=== PATIENT | male | born 2000 | race Caucasian/White ===

== ENCOUNTER 2019-02-03 12:35 | Emergency (ER) | payer BC, OTHER ==
[~2019-02-03] VITALS: Ht 188 cm; Wt 113.6 kg
--- NOTE | 2019-02-03 13:52 | REP ---
Right knee series: Four views. No sunrise view included. History: Trauma. Comparison radiographs are from February 12, 2018. Findings: There is a recurrent lateral dislocation of the patella. No patellar fracture is seen. A fabella is noted posterolaterally. Impression: Recurrent lateral patellar dislocation. No fracture seen. Electronically Signed by Erik Larry MD 02/03/2019 01:59 P
--- NOTE | 2019-02-03 14:31 | REP ---
RIGHT KNEE SERIES: Three views. HISTORY: Injury in a fall. [place] view. Comparison is made with earlier radiographs. FINDINGS: AP lateral and sunrise views demonstrate improved positioning of the patella compared to the distal femur. There is fullness in the suprapatellar bursa consistent with a joint effusion. On the frontal view, the patella still appears somewhat laterally positioned although it is normally aligned on the sunrise view. There is lateral patellar spurring. No patellar fracture is appreciated. IMPRESSION: Evidence of joint effusion. Lateral patellar spurring. Patellar alignment is normal on the sunrise view and improved on the frontal and lateral views. No acute fracture is evident. Electronically Signed by Erik Larry MD 02/03/2019 02:43 P
[2019-02-03] MEDS ORDERED: ACETAMINOPHEN TAB 650MG DOSE (2X325MG) PO ONE (15:15)
[2019-02-03] MEDS ORDERED: IBUPROFEN 600 MG TAB PO ONE (15:15)
[2019-02-03 15:30] VITALS: BP 123/58
== END 2019-02-03 16:15 | disposition home or self-care (01) ==
LOC: M ED 12:35
DX: S83.004A Unspecified dislocation of right patella, initial encounter (principal); W19.XXXA Unspecified fall, initial encounter; Y92.099 Unspecified place in other non-institutional residence as the place of occurrence of the external cause; Y93.9 Activity, unspecified; Y99.9 Unspecified external cause status; M25.761 Osteophyte, right knee; Z98.84 Bariatric surgery status

== ENCOUNTER → 2019-04-16 | Outpatient (CLI) | payer OTHER ==
[2019-04-16 16:29] LABS: AMYLASE 52 U/L (25-115); LIPASE 61 U/L (73-393)
[2019-04-18 14:55] LABS: EBV AB TO NUCLEAR ANTIGEN <18.0 U/mL (0.0-17.9); EBV VIRAL CAPSID AG IgG 69.6 U/mL (0.0-17.9); EBV VIRAL CAPSID AG IgM 52.9 U/mL (0.0-35.9)
== END ==
LOC: M WUC 11:20
PROVIDERS: ATTEND Physician Assistant
DX: R16.2 Hepatomegaly with splenomegaly, not elsewhere classified (principal)

== ENCOUNTER 2019-07-15 10:02 | Inpatient (IN) | payer OTHER ==
[~2019-07-15] VITALS: Ht 185.4 cm; Wt 121.5 kg
[2019-07-15] MEDS ORDERED: ISOVUE-370 76% 100ML VIAL (Q9967) As Ordered ONE (10:30)
[2019-07-15 10:51] LABS: BASO % 0.6 % (0.0-1.0); EOS # 0.1 10^3/uL (0.0-0.5); EOS % 1.6 % (0.0-3.0); HEMATOCRIT 48.5 % (42.0-52.0); HEMOGLOBIN 16.5 g/dl (13.5-17.5); LYMPH # 1.3 10^3/uL (1.5-5.0); LYMPH % 25.9 % (24.0-44.0); MEAN CORPUSCULAR HEMOGLOBIN 31.3 pg (27.0-33.0); MONO # 0.6 10^3/uL (0.0-0.8); MONO % 11.1 % (0.0-5.0); NEUTROPHILS # 3.1 10^3/uL (1.5-8.5); NEUTROPHILS % 60.6 % (36.0-66.0); PLATELET COUNT, AUTOMATED 217 10^3/uL (150-450); RED BLOOD COUNT 5.27 10^6/uL (4.30-6.10); WHITE BLOOD COUNT 5.1 10^3/uL (4.0-10.0)
--- NOTE | 2019-07-15 11:15 | REP ---
CT ABDOMEN AND PELVIS WITH IV BUT WITHOUT ORAL CONTRAST: HISTORY: Upper abdominal pain. History of gastric bypass. COMPARISON STUDY: April 15, 2019 CT CONTRAST DOSE: 100 mL of intravenous Isovue 370. CT FINDINGS: Digital preliminary integration consultant radiograph shows a normal bowel gas pattern. The liver and spleen silhouettes are prominent on integration consultant image. The lung bases are clear on axial CT images. The patient is status post gastric bypass procedure. The liver and spleen are enlarged on CT images. The craniocaudal vertical span of the liver is 19.7 cm, and the spleen measures 17 cm in greatest diameter. Both these measurements are increased. No focal hepatic or splenic lesion is seen. Liver and spleen size are unchanged from April 15, 2019. There is an edema pattern within the pancreas and in the peripancreatic soft tissues diffusely consistent with acute pancreatitis. This should be correlated clinically. There is mild gallbladder wall thickening. There is no evidence of diffuse ascites. No free air is seen. No abdominal wall defect is observed. The kidneys enhance symmetrically and are morphologically intact. No adrenal lesion is seen. No pancreatic mass or localized fluid collection is seen. Normal appendix is visible in the right lower quadrant. Bone window settings show no significant bony abnormality. IMPRESSION: Findings consistent with pancreatitis with intrapancreatic and peripancreatic edema. Gallbladder wall thickening. These findings are new. There is hepatosplenomegaly, unchanged from the April 15, 2019. No other acute abnormality. Electronically Signed by Erik Larry MD 07/15/2019 01:03 P
[2019-07-15 11:17] LABS: ALBUMIN 4.3 GM/DL (3.2-5.2); BILIRUBIN,DIRECT 1.4 MG/DL (0.0-0.2); BILIRUBIN,TOTAL 3.1 MG/DL (0.2-1.0); TOTAL PROTEIN 7.4 GM/DL (6.4-8.2)
[2019-07-15 11:31] LABS: BLOOD UREA NITROGEN 8 MG/DL (7-18); CALCIUM LEVEL 9.4 MG/DL (8.5-10.1); CARBON DIOXIDE LEVEL 25 MEQ/L (21-32); CHLORIDE LEVEL 107 MEQ/L (98-107); CREATININE FOR GFR 0.82 MG/DL (0.70-1.30); GLUCOSE, FASTING 86 MG/DL (70-100); POTASSIUM SERUM 4.3 MEQ/L (3.5-5.1); SODIUM LEVEL 140 MEQ/L (136-145)
[2019-07-15] MEDS ORDERED: LR 1,000 ML IV SCH (12:15)
[2019-07-15] MEDS ORDERED: MORPHINE 4 MG/ML 1ML VIAL/SYRINGE (J2270) IV PRN (12:45)
[2019-07-15] MEDS ORDERED: ONDANSETRON 4MG/2ML VIAL (J2405) IV PRN (12:45)
[2019-07-15] MEDS: LR 1,000 ML IV SCH ×3 (12:56→20:45)
--- NOTE | 2019-07-15 13:01 | HPEPDOC ---
General Date of Admission 07/15/19 Date of Service: Jul 15, 2019 Chief Complaint The patient is a 19-year-old male admitted with a reason for visit of Abdominal Pain. Source: Patient, Family, RN/MD, Old records Exam Limitations: No limitations Severity: Moderate Associated Symptoms: Nausea History of Present Illness 19 year old male with PMH of Morbid obesity s/p gastric bypass surgery in 2017 with loss of 200 ibs after the procedure presented to the ED with acute onset abdominal pain for 1 day. pateint has been having intermittent upper abdominal and epigastric pain for the last 2 moths would come last for a few hours then go away becoming pain free for several days then again would come. This time the pain started last night severe crampy in the epigastrium radiating to the back associated with dry heaves lasted for 1 to 2 hours then It relaxed a little overnight then again woke up with very severe pain which was causing him to be doubled over in pain. It was 10/10 in intensity but by the time he reached the emergency the pain had gone down spontaneously. In the ED he was found to have acute pancreatitis with elevated bilirubin and transaminitis. CT abdomen and pelvis showed Findings consistent with pancreatitis with intrapancreatic and peripancreatic edema. Gallbladder wall thickening. These findings are new. There is hepatosplenomegaly, unchanged from the April 15, 2019. No other acute abnormality. Home Medications No Active Prescriptions or Reported Meds Allergies Coded Allergies: No Known Allergies (Unverified , 02/03/19) Past Medical History Medical History Morbid obesity s/p gastric bypass surgery in 2017 Family History Significant Family History: Diabetes (mother, maternal grand mother, father now resolved after gastric bypass surgery), Gallbladder (mother gall stones), Heart disease (maternal and paternal grandmother), Hypertension (father, mother), Hyperlipidemia (mother) Social History * Smoker: Denies Alcohol: Denies Drugs: denies A-FIB/CHADSVASC A-FIB History Current/History of A-Fib/PAF?: No Review of Systems Constitutional: Denies: Chills, Fever, Night Sweats Eyes: Denies: Pain, Vision change ENT: Denies: Head Aches, Ear Pain, Dysphagia Skin: Denies: Rash, Lesions, Breakdown Pulmonary: Denies: Dyspnea, Cough Cardiovascular: Denies: Chest Pain, Palpitations, Orthopnea, Paroxysmal Noc. Dyspnea, Lt Headedness Gastrointestinal: Reports: Nausea, Abdominal Pain, Other Symptoms (dry heaves) Genitourinary: Denies: Dysuria, Frequency, Incontinence, Retention Hematologic: Denies: Bruising, Bleeding Excessively Musculoskeletal: Denies: Neck Pain, Back Pain, Joint Pain, Muscle Pain, Spasms Psych: Reports: Mood Normal; Denies: Depression, Memory Issues Physical Examination General Exam: Positive: Alert, Cooperative, No Acute Distress Eye Exam: Positive: PERRLA, Conjunctiva & lids normal, EOMI; Negative: Sclera icteric ENT Exam: Positive: Atraumatic, Mucous membr. moist/pink, Pharynx Normal Neck Exam: Positive: Supple; Negative: JVD, thyromegaly Chest Exam: Positive: Clear to auscultation, Normal air movement Heart Exam: Positive: Rate Normal, Regular Rhythm, Normal S1, Normal S2; Negative: Murmurs, Rubs Abdomen Exam: Positive: BS Hypoactive, Soft, Tenderness (in the epigastrium); Negative: Hepatospenomegaly Extremity Exam: Positive: Normal pulses; Negative: Clubbing, Cyanosis, Edema Skin Exam: Positive: Nl turgor and temperature; Negative: Breakdown, Lesion Psych Exam: Positive: Mental status NL, Mood NL, Memory Intact, Oriented x 3 Vital Signs Vital Signs Date Time Temp Pulse Resp B/P (MAP) Pulse Ox O2 Delivery O2 Flow Rate FiO2 07/15/19 11:01 18 07/15/19 10:02 98.3 55 99 Room Air Laboratory Data Labs 24H Laboratory Tests 2 07/15/19 10:30: Immature Granulocyte % (Auto) 0.2, White Blood Count 5.1, Red Blood Count 5.27, Hemoglobin 16.5, Hematocrit 48.5, Mean Corpuscular Volume 92.0, Mean Corpuscular Hemoglobin 31.3, Mean Corpuscular Hemoglobin Concent 34.0, Red Cell Distribution Width 12.5, Platelet Count 217, Neutrophils (%) (Auto) 60.6, Lymphocytes (%) (Auto) 25.9, Monocytes (%) (Auto) 11.1H, Eosinophils (%) (Auto) 1.6, Basophils (%) (Auto) 0.6, Neutrophils # (Auto) 3.1, Lymphocytes # (Auto) 1.3L, Monocytes # (Auto) 0.6, Eosinophils # (Auto) 0.1, Basophils # (Auto) 0.0, Nucleated Red Blood Cells % (auto) 0.0, Aspartate Amino Transf (AST/SGOT) 384H, Alanine Aminotransferase (ALT/SGPT) 236H, Alkaline Phosphatase 77, Total Bilirubin 3.1H, Direct Bilirubin 1.4H, Total Protein 7.4, Albumin 4.3, Albumin/Globulin Ratio 1.39, Lipase [id number] 07/15/19 10:40: Urine Color YELLOW, Urine Appearance CLEAR, Urine pH 6.0, Urine Specific [place] 1.006, Urine Protein NEGATIVE, Urine Glucose (UA) NEGATIVE, Urine Ketones NEGATIVE, Urine Blood 1+H, Urine Nitrite NEGATIVE, Urine Bilirubin NEGATIVE, Urine Urobilinogen 4.0H, Urine Leukocyte Esterase NEGATIVE, Urine WBC (Auto) 0, Urine RBC (Auto) 1, Urine Hyaline Casts (Auto) 0, Urine Bacteria (Auto) NEGATIVE, Urine Squamous Epithelial Cells 0, Urine Sperm (Auto) 07/15/19 10:50: Anion Gap 8, Blood Urea Nitrogen 8, Creatinine 0.82, Sodium Level 140, Potassium Level 4.3, Chloride Level 107, Carbon Dioxide Level 25, Calcium Level 9.4 CBC/BMP Laboratory Tests 07/15/19 10:30 Red Blood Count 5.27, Mean Corpuscular Volume 92.0, Mean Corpuscular Hemoglobin 31.3, Mean Corpuscular Hemoglobin Concent 34.0, Red Cell Distribution Width 12.5, Neutrophils (%) (Auto) 60.6, Lymphocytes (%) (Auto) 25.9, Monocytes (%) (Auto) 11.1 H, Eosinophils (%) (Auto) 1.6, Basophils (%) (Auto) 0.6, Neutrophils # (Auto) 3.1, Lymphocytes # (Auto) 1.3 L, Monocytes # (Auto) 0.6, Eosinophils # (Auto) 0.1, Basophils # (Auto) 0.0 07/15/19 10:50 Calcium Level 9.4 Assessment/Plan 19 year old male with PMH of Morbid obesity s/p gastric bypass surgery in 2017 with loss of 200 ibs after the procedure presented to the ED with acute onset abdominal pain for 1 day. pateint has been having intermittent upper abdominal and epigastric pain for the last 2 moths would come last for a few hours then go away becoming pain free for several days then again would come. This time the pain started last night severe crampy in the epigastrium radiating to the back associated with dry heaves lasted for 1 to 2 hours then It relaxed a little overnight then again woke up with very severe pain which was causing him to be doubled over in pain. It was 10/10 in intensity but by the time he reached the emergency the pain had gone down spontaneously. In the ED he was found to have acute pancreatitis with elevated bilirubin and transaminitis. CT abdomen and pelvis showed Findings consistent with pancreatitis with intrapancreatic and peripancreatic edema. Gallbladder wall thickening. These findings are new. There is hepatosplenomegaly, unchanged from the April 15, 2019. No other acute abnormality. Acute pancreatitis NPO, IVF ringers lactate. pain control with morphine Pantoprazole , zofran MRCP. GI consult. H/O morbid obesity s/p gastric bypass surgery Plan / VTE VTE Prophylaxis Ordered?: Yes MARIFER TAYLOR MD Jul 15, 2019 13:01
[2019-07-15 14:35] VITALS: BP 125/60
[2019-07-15] MEDS ORDERED: PANTOPRAZOLE 40MG INJ (PROTONIX) (C9113) IV SCH (15:00)
--- NOTE | 2019-07-15 18:45 | CR.PDOC ---
General Date of Consultation: Jul 15, 2019 Referring Provider: NILA PAUL MD Attending Physician: AIDEE GOMEZ MD Consultation Primary physician/ hospitalist: Dr. Nila Paul Reason for consult: Acute pancreatitis. HPI: 19-year-old male patient with obesity (s/p Siddhartha-en-Y gastric bypass, 2 years ago, with 100 pound weight loss post surgery, current BMI 35), presented to ER for acute onset abdominal pain and was admitted for pancreatitis. Patient reports having few episodes of epigastric abdominal pain for the past 2 months, with the current episode started yesterday with severe epigastric abdominal pain, radiating to the back, sharp/stabbing nature, associated with nausea and an episode of vomiting. When patient is examined, his pain has significantly improved and denies any active symptoms. Pertinent negative GI symptoms: Patient denies fever, sick contacts, recent travel, diarrhea, loss of appetite, early satiety or unintentional weight loss. No history of hematemesis, melena or hematochezia. Patient reports regular bowel movements. Review of Systems: GI: as stated above CVS: No chest pain, No palpitations, No leg swelling. RS: No Shortness of breath, No Wheezing, no cough RESERVES CLERK: No dizziness, No motor weakness, No sensory problems Hematology: No bruising, No gum bleeding, Musculoskeletal: No joint pain, ambulating well. Skin: No rash : No hematuria, No burning sensation of the urine ENT: No ear discharge/ pain, No dysphagia. Eyes: No photophobia. Jaundice Home medications: reviewed. Antithrombotic agents - none Medical h/o: As above. Surgical h/o: Siddhartha-en-Y gastric bypass. Social h/o: Alcohol - denies, smoking- denies , IVDA/ drugs - denies. Family h/o of GI cancers - None Prior Endoscopies: None in [facility] Prior GI evaluations: None in [facility] Exam: Vitals: reviewed General: Alert and oriented x 3, not in distress HEENT: NO pallor, no icterus. Normal oropharynx, NO cervical lymph nodes. Chest: symmetric with bilateral clear air entry, CVS: S1, S2 heard, normal, no murmurs . Abdomen: non-distended, laparoscopy surgical scars, soft, non-tender, no palpable masses, normal bowel sounds heard. Rectal exam: Patient refused. Extremities: no pedal edema, pulses palpable. RESERVES CLERK: no focal motor or sensory deficits. Moves all extremities Skin: no rash. Labs: reviewed. Imaging: reviewed. Impression: - Acute onset epigastric pain with radiation to back, labs showing elevated lipase, with abnormal liver panel, MRI showing multiple gallstones but normal CBD and clinically symptoms also improved -- likely biliary pancreatitis with passed CBD stone. DDx- Biliary cholic vs less likely PUD. Recommendations: - Patient educated about the test results, possible differential diagnoses and All questions answered. - IV hydration - prefer ringers lactate 3-5 ml /kg/ hour drip for first 12 hours and then titrate based on the clinical course. - Advance diet as tolerated when patient has return of appetite. - Surgery consult for possible inpatient cholecystectomy. - If persistent worsening liver panel, please obtain viral hepatitis markers and autoimmune hepatitis work up ( NORMA, AMA, smooth muscle antibody and liver kidney microsomal antibody.). - if recurrent biliary colicky pain and worsening liver panel, then patient might require IR drainage of CBD or referral to tertiary center for possible biliary drainage. ( due to gastri bypass, unfortunately regular ERCP cannot be performed). Plan of care discussed with patient and primary team. Patient verbalized understanding and agreed with the plan. Laboratory Data CBC/BMP Laboratory Tests 07/15/19 10:30 Red Blood Count 5.27, Mean Corpuscular Volume 92.0, Mean Corpuscular Hemoglobin 31.3, Mean Corpuscular Hemoglobin Concent 34.0, Red Cell Distribution Width 12.5, Neutrophils (%) (Auto) 60.6, Lymphocytes (%) (Auto) 25.9, Monocytes (%) (Auto) 11.1 H, Eosinophils (%) (Auto) 1.6, Basophils (%) (Auto) 0.6, Neutrophils # (Auto) 3.1, Lymphocytes # (Auto) 1.3 L, Monocytes # (Auto) 0.6, Eosinophils # (Auto) 0.1, Basophils # (Auto) 0.0 07/15/19 10:50 Calcium Level 9.4 Allergies Coded Allergies: No Known Allergies (Unverified , 02/03/19) Home Medications No Active Prescriptions or Reported Meds AIDEE GOMEZ MD Jul 15, 2019 18:44
[2019-07-15 20:00] VITALS: BP 162/87
--- NOTE | 2019-07-15 21:11 | REPVR ---
EXAM: MR Abdomen Without Contrast; Liver EXAM DATE/TIME: 07/15/2019 7:50 PM CLINICAL HISTORY: 19 years old, male; Abnormal findings; Abnormal radiologic finding of the abdomen; Radiologic exam and body structure: CT and US gb; Nausea and other: Pain; Additional info: Mrcp TECHNIQUE: Imaging protocol: MR Abdomen without contrast. Exam focused on the liver. 3D rendering: MIP reconstructed images were created and reviewed. COMPARISON: CT ABD/PEL W/IV CONTRAST ONLY 07/15/2019 10:40 AM FINDINGS: Liver: Normal-appearing liver Gallbladder and bile ducts: There is sludge and gravel like gallstones filling the gallbladder, 100s of small gallstones. The common bile duct is normal in size and there is no intrahepatic biliary dilatation. Pancreas: There is fluid along the margins of the pancreas and gallbladder consistent with pancreatitis. There may be cholecystitis as well. Spleen: There is moderate splenomegaly. Kidneys and ureters: Normal appearing kidneys. IMPRESSION: 1. There are 100s of small gallstones within the gallbladder. There is fluid along the course of the pancreas consistent with pancreatitis. 2. Some fluid along the margins of the gallbladder could be the result of cholecystitis. 3. The common bile duct is not enlarged. The pancreatic duct is not enlarged Electronically signed by: Vinayak Marcus On 07/15/2019 21:11:37 PM
[2019-07-16] MEDS: LR 1,000 ML IV SCH ×3 (02:35→08:57)
[2019-07-16 06:00] VITALS: BP 165/81
[2019-07-16 06:34] LABS: BASO % 0.6 % (0.0-1.0); EOS # 0.1 10^3/uL (0.0-0.5); EOS % 2.3 % (0.0-3.0); HEMATOCRIT 41.4 % (42.0-52.0); LYMPH # 1.7 10^3/uL (1.5-5.0); LYMPH % 31.2 % (24.0-44.0); MEAN CORPUSCULAR HEMOGLOBIN 32.1 pg (27.0-33.0); MEAN CORPUSCULAR HGB CONC 34.5 g/dl (32.0-36.5); MONO # 0.4 10^3/uL (0.0-0.8); MONO % 7.4 % (0.0-5.0); NEUTROPHILS # 3.1 10^3/uL (1.5-8.5); NEUTROPHILS % 58.1 % (36.0-66.0); PLATELET COUNT, AUTOMATED 181 10^3/uL (150-450); RED BLOOD COUNT 4.45 10^6/uL (4.30-6.10); WHITE BLOOD COUNT 5.3 10^3/uL (4.0-10.0)
[2019-07-16 06:37] LABS: HEMOGLOBIN 14.3 g/dl (13.5-17.5)
[2019-07-16 06:51] LABS: BLOOD UREA NITROGEN 8 MG/DL (7-18); CARBON DIOXIDE LEVEL 29 MEQ/L (21-32); CHLORIDE LEVEL 105 MEQ/L (98-107); CREATININE FOR GFR 0.74 MG/DL (0.70-1.30); GLUCOSE, FASTING 77 MG/DL (70-100); LIPASE 948 U/L (73-393); POTASSIUM SERUM 4.3 MEQ/L (3.5-5.1); SODIUM LEVEL 139 MEQ/L (136-145)
[2019-07-16 07:35] LABS: ALBUMIN 3.6 GM/DL (3.2-5.2); ALT/SGPT 175 U/L (12-78); BILIRUBIN,DIRECT 0.3 MG/DL (0.0-0.2); BILIRUBIN,TOTAL 2.2 MG/DL (0.2-1.0); TOTAL PROTEIN 6.6 GM/DL (6.4-8.2)
--- NOTE | 2019-07-16 09:55 | IPNPDOC ---
Subjective Date Seen The patient was seen on 07/16/19. Subjective Chief Complaint/HPI Denies any abdominal pain this am. No fever or chills, no dry heaves. Infact did not have any further episode of pain after admission. Passing flatus but no bowel movement yet. Says feeling hungry. Objective Physical Examination General Exam: Positive: Alert, Cooperative, No Acute Distress Eye Exam: Positive: PERRLA, Conjunctiva & lids normal, EOMI; Negative: Sclera icteric ENT Exam: Positive: Atraumatic, Mucous membr. moist/pink, Pharynx Normal Neck Exam: Positive: Supple; Negative: JVD, thyromegaly Chest Exam: Positive: Clear to auscultation, Normal air movement Heart Exam: Positive: Rate Normal, Regular Rhythm, Normal S1, Normal S2; Negative: Murmurs, Rubs Abdomen Exam: Positive: Normal bowel sounds, Soft; Negative: Tenderness Extremity Exam: Positive: Normal pulses; Negative: Clubbing, Cyanosis, Edema Skin Exam: Positive: Nl turgor and temperature; Negative: Breakdown, Lesion Psych Exam: Positive: Mental status NL, Mood NL, Memory Intact, Oriented x 3 Assessment /Plan Assessment 19 year old male with PMH of Morbid obesity s/p gastric bypass surgery in 2017 with loss of 200 ibs after the procedure presented to the ED with acute onset abdominal pain for 1 day. pateint has been having intermittent upper abdominal and epigastric pain for the last 2 moths would come last for a few hours then go away becoming pain free for several days then again would come. This time the pain started last night severe crampy in the epigastrium radiating to the back associated with dry heaves lasted for 1 to 2 hours then It relaxed a little overnight then again woke up with very severe pain which was causing him to be doubled over in pain. It was 10/10 in intensity but by the time he reached the emergency the pain had gone down spontaneously. In the ED he was found to have acute pancreatitis with elevated bilirubin and transaminitis. CT abdomen and pelvis showed Findings consistent with pancreatitis with intrapancreatic and peripancreatic edema. Gallbladder wall thickening. These findings are new. There is hepatosplenomegaly, unchanged from the April 15, 2019. No other acute abnormality. Acute Gall stone pancreatitis seems to be improving advance diet to full liquids. IVF reduce rate pain control with morphine prn Pantoprazole , zofran MRCP shows innumerable small gall stones with sludge with possible cholecystitis, No CBD dilatation or stones in CBD. No intrahepatic biliary dilatation. features of acute pancreatitis as expected. GI consult appreciated will consult surgery Acute cholecystitis I do not think he has acute cholecystitis as no pain at present, no fever no elevated WBC. Though the MRCP is showing some fluid along the gall bladder wall. Abdominal exam completely benign. will not give any antibiotics at present. Surgical evaluation. H/O morbid obesity s/p gastric bypass surgery Plan/VTE VTE Prophylaxis Ordered?: Yes VS, I&O, 24H, Fishbone Vital Signs/I&O Vital Signs Date Time Temp Pulse Resp B/P (MAP) Pulse Ox O2 Delivery O2 Flow Rate FiO2 07/16/19 06:00 98.2 77 18 165/81 (109) 97 07/15/19 10:02 Room Air I&O- Last 24 Hours up to 6 AM 07/16/19 06:00 Intake Total 4305 ml Output Total 200 ml Balance 4105 ml Laboratory Data 24H LABS Laboratory Tests 2 07/15/19 10:30: Immature Granulocyte % (Auto) 0.2, White Blood Count 5.1, Red Blood Count 5.27, Hemoglobin 16.5, Hematocrit 48.5, Mean Corpuscular Volume 92.0, Mean Corpuscular Hemoglobin 31.3, Mean Corpuscular Hemoglobin Concent 34.0, Red Cell Distribution Width 12.5, Platelet Count 217, Neutrophils (%) (Auto) 60.6, Lymphocytes (%) (Au to) 25.9, Monocytes (%) (Auto) 11.1H, Eosinophils (%) (Auto) 1.6, Basophils (%) (Auto) 0.6, Neutrophils # (Auto) 3.1, Lymphocytes # (Auto) 1.3L, Monocytes # (Auto) 0.6, Eosinophils # (Auto) 0.1, Basophils # (Auto) 0.0, Nucleated Red Blood Cells % (auto) 0.0, Aspartate Amino Transf (AST/SGOT) 384H, Alanine Aminotransferase (ALT/SGPT) 236H, Alkaline Phosphatase 77, Total Bilirubin 3.1H, Direct Bilirubin 1.4H, Total Protein 7.4, Albumin 4.3, Albumin/Globulin Ratio 1.39, Lipase [id number] 07/15/19 10:40: Urine Color YELLOW, Urine Appearance CLEAR, Urine pH 6.0, Urine Specific [place] 1.006, Urine Protein NEGATIVE, Urine Glucose (UA) NEGATIVE, Urine Ketones NEGATIVE, Urine Blood 1+H, Urine Nitrite NEGATIVE, Urine Bilirubin NEGATIVE, Urine Urobilinogen 4.0H, Urine Leukocyte Esterase NEGATIVE, Urine WBC (Auto) 0, Urine RBC (Auto) 1, Urine Hyaline Casts (Auto) 0, Urine Bacteria (Auto) NEGATIVE, Urine Squamous Epithelial Cells 0, Urine Sperm (Auto) 07/15/19 10:50: Anion Gap 8, Blood Urea Nitrogen 8, Creatinine 0.82, Sodium Level 140, Potassium Level 4.3, Chloride Level 107, Carbon Dioxide Level 25, Calcium Level 9.4 07/16/19 06:09: 07/16/19 06:10: Immature Granulocyte % (Auto) 0.4, White Blood Count 5.3, Red Blood Count 4.45, Hemoglobin 14.3#, Hematocrit 41.4L, Mean Corpuscular Volume 93.0, Mean Corpuscular Hemoglobin 32.1, Mean Corpuscular Hemoglobin Concent 34.5, Red Cell Distribution Width 12.6, Platelet Count 181, Neutrophils (%) (Auto) 58.1, Lymphocytes (%) (Auto) 31.2, Monocytes (%) (Auto) 7.4H, Eosinophils (%) (Auto) 2.3, Basophils (%) (Auto) 0.6, Neutrophils # (Auto) 3.1, Lymphocytes # (Auto) 1.7, Monocytes # (Auto) 0.4, Eosinophils # (Auto) 0.1, Basophils # (Auto) 0.0, Nucleated Red Blood Cells % (auto) 0.0 CBC/BMP Laboratory Tests 07/15/19 10:30 Red Blood Count 5.27, Mean Corpuscular Volume 92.0, Mean Corpuscular Hemoglobin 31.3, Mean Corpuscular Hemoglobin Concent 34.0, Red Cell Distribution Width 12.5, Neutrophils (%) (Auto) 60.6, Lymphocytes (%) (Auto) 25.9, Monocytes (%) (Auto) 11.1 H, Eosinophils (%) (Auto) 1.6, Basophils (%) (Auto) 0.6, Neutrophils # (Auto) 3.1, Lymphocytes # (Auto) 1.3 L, Monocytes # (Auto) 0.6, Eosinophils # (Auto) 0.1, Basophils # (Auto) 0.0 07/15/19 10:50 Calcium Level 9.4 07/16/19 06:10 Red Blood Count 4.45, Mean Corpuscular Volume 93.0, Mean Corpuscular Hemoglobin 32.1, Mean Corpuscular Hemoglobin Concent 34.5, Red Cell Distribution Width 12.6, Neutrophils (%) (Auto) 58.1, Lymphocytes (%) (Auto) 31.2, Monocytes (%) (Auto) 7.4 H, Eosinophils (%) (Auto) 2.3, Basophils (%) (Auto) 0.6, Neutrophils # (Auto) 3.1, Lymphocytes # (Auto) 1.7, Monocytes # (Auto) 0.4, Eosinophils # (Auto) 0.1, Basophils # (Auto) 0.0 MARIFER TAYLOR MD Jul 16, 2019 06:53
[2019-07-16 14:00] VITALS: BP 141/80
--- NOTE | 2019-07-16 14:33 | DS.PDOC ---
Discharge Summary General Date of Admission Jul 15, 2019 at 12:40 Date of Discharge 07/16/19 Discharge Summary PROCEDURES PERFORMED DURING STAY: [None]. DISCHARGE DIAGNOSES: Acute gallstone Pancreatitis COMPLICATIONS/CHIEF COMPLAINT: Acute Pancreatitis. HISTORY OF PRESENT ILLNESS: Please see history and physical HOSPITAL COURSE: 19 year old male with PMH of Morbid obesity s/p gastric bypass surgery in 2017 with loss of 200 ibs after the procedure presented to the ED with acute onset abdominal pain for 1 day. pateint has been having intermittent upper abdominal and epigastric pain for the last 2 moths would come last for a few hours then go away becoming pain free for several days then again would come. This time the pain started last night severe crampy in the epigastrium radiating to the back associated with dry heaves lasted for 1 to 2 hours then It relaxed a little overnight then again woke up with very severe pain which was causing him to be doubled over in pain. It was 10/10 in intensity but by the time he reached the emergency the pain had gone down spontaneously. In the ED he was found to have acute pancreatitis with elevated bilirubin and transaminitis. CT abdomen and pelvis showed Findings consistent with pancreatitis with intrapancreatic and peripancreatic edema. Gallbladder wall thickening. These findings are new. There is hepatosplenomegaly, unchanged from the April 15, 2019. No other acute abnormality. Acute Gall stone pancreatitis MRCP shows innumerable small gall stones with sludge with possible cholecystitis, No CBD dilatation or stones in CBD. No intrahepatic biliary dilatation. features of acute pancreatitis as expected. improving. advanced diet to Low fat and low cholesterol. Seen by Surgery planned for cholecystectomy on 07/21/19 GI consult appreciated Acute cholecystitis as per MRCP I do not think he has acute cholecystitis as no pain at present, no fever no elevated WBC. Though the MRCP is showing some fluid along the gall bladder wall. Abdominal exam completely benign. Has been evaluated by surgery. H/O morbid obesity s/p gastric bypass surgery DISCHARGE MEDICATIONS: Please see below. ALLERGIES: Please see below. PHYSICAL EXAMINATION ON DISCHARGE: VITAL SIGNS: Please see below. General Exam: Positive: Alert, Cooperative, No Acute Distress Eye Exam: Positive: PERRLA, Conjunctiva & lids normal, EOMI; Negative: Sclera icteric ENT Exam: Positive: Atraumatic, Mucous membr. moist/pink, Pharynx Normal Neck Exam: Positive: Supple; Negative: JVD, thyromegaly Chest Exam: Positive: Clear to auscultation, Normal air movement Heart Exam: Positive: Rate Normal, Regular Rhythm, Normal S1, Normal S2; Negative: Murmurs, Rubs Abdomen Exam: Positive: Normal bowel sounds, Soft; Negative: Tenderness Extremity Exam: Positive: Normal pulses; Negative: Clubbing, Cyanosis, Edema Skin Exam: Positive: Nl turgor and temperature; Negative: Breakdown, Lesion Psych Exam: Positive: Mental status NL, Mood NL, Memory Intact, Oriented x 3 LABORATORY DATA: Please see below. ACTIVITY: [As tolerated]. DIET: low fat, low cholesterol DISCHARGE PLAN: Home DISPOSITION: Home DISCHARGE INSTRUCTIONS: Follow up Dr Comer. DISCHARGE CONDITION: [Stable]. TIME SPENT ON DISCHARGE: 35 minutes. Vital Signs/I&Os Vital Signs Date Time Temp Pulse Resp B/P (MAP) Pulse Ox O2 Delivery O2 Flow Rate FiO2 07/16/19 06:00 98.2 77 18 165/81 (109) 97 07/15/19 10:02 Room Air I&O- Last 24 Hours up to 6 AM 07/16/19 06:00 Intake Total 4305 ml Output Total 200 ml Balance 4105 ml Laboratory Data Labs 24H Laboratory Tests 2 07/16/19 06:09: Anion Gap 5L, Calcium Level 9.0, Aspartate Amino Transf (AST/SGOT) 133H, Alanine Aminotransferase (ALT/SGPT) 175H, Alkaline Phosphatase 70, Total Bilirubin 2.2H, Direct Bilirubin 0.3H, Total Protein 6.6, Albumin 3.6, Albumin/Globulin Ratio 1.20, Lipase 948H 07/16/19 06:10: Immature Granulocyte % (Auto) 0.4, White Blood Count 5.3, Red Blood Count 4.45, Hemoglobin 14.3#, Hematocrit 41.4L, Mean Corpuscular Volume 93.0, Mean Corpuscular Hemoglobin 32.1, Mean Corpuscular Hemoglobin Concent 34.5, Red Cell Distribution Width 12.6, Platelet Count 181, Neutrophils (%) (Auto) 58.1, Lymphocytes (%) (Auto) 31.2, Monocytes (%) (Auto) 7.4H, Eosinophils (%) (Auto) 2.3, Basophils (%) (Auto) 0.6, Neutrophils # (Auto) 3.1, Lymphocytes # (Auto) 1.7, Monocytes # (Auto) 0.4, Eosinophils # (Auto) 0.1, Basophils # (Auto) 0.0, Nucleated Red Blood Cells % (auto) 0.0 CBC/BMP Laboratory Tests 07/16/19 06:09 07/16/19 06:10 Red Blood Count 4.45, Mean Corpuscular Volume 93.0, Mean Corpuscular Hemoglobin 32.1, Mean Corpuscular Hemoglobin Concent 34.5, Red Cell Distribution Width 12.6, Neutrophils (%) (Auto) 58.1, Lymphocytes (%) (Auto) 31.2, Monocytes (%) (Auto) 7.4 H, Eosinophils (%) (Auto) 2.3, Basophils (%) (Auto) 0.6, Neutrophils # (Auto) 3.1, Lymphocytes # (Auto) 1.7, Monocytes # (Auto) 0.4, Eosinophils # (Auto) 0.1, Basophils # (Auto) 0.0 Discharge Medications No Active Prescriptions or Reported Meds Allergies Coded Allergies: No Known Allergies (Unverified , 02/03/19) MARIFER TAYLOR MD Jul 16, 2019 14:33
--- NOTE | 2019-07-16 14:34 | CR.PDOC ---
General Surgery Consultation Date of Consultation 07/16/19 History and Physical CONSULT REPORT FOR: Dr. Nila Paul (hospitalist service) REASON FOR CONSULTATION: Gallstone pancreatitis, bariatric surgery status HISTORY OF PRESENT ILLNESS: Patient is a 19-year-old male who has a history of laparoscopic gastric bypass done 2 years ago and apparently has lost about 200 pounds from the procedure but weight has to have lysed now. He presented and got admitted to the hospital yesterday with acute onset of severe epigastric pain and discomfort accompanied with nausea and vomiting.Prior to this patient reports intermittent right upper quadrant abdominal discomfort intermittently for the past 2 months. During one of the episodes he was previously seen in the hospital. He was worked up and diagnosed with gallstone pancreatitis. He also had concomitant elevation of his liver function test which seems to be improving on repeat laboratories. He also has had a CT of the abdomen and pelvis and followed by an MRCP to workup for possibility of: Mild duct stones. I was then asked to see the patient for consideration for performing cholecystectomy for his gallstone pancreatitis PAST MEDICAL HISTORY: 1. Morbid obesity status post laparoscopic Siddhartha-en-Y gastric bypass 2 years ago. PAST SURGICAL HISTORY: INCLUDES: 1. Laparoscopic Siddhartha-en-Y gastric bypass. PREVIOUS ANESTHESIA REACTIONS: Denies ALLERGIES: Please see below. FAMILY HISTORY: Noncontributory. HOME MEDICATIONS: Please see below. REVIEW OF SYSTEMS: GENERAL: Patient with weight loss from gastric bypass. Reports weight has to have lysed. Denies fevers or chills. HEENT: [Denies blurred vision and double vision. Denies ear symptoms. Denies hoarseness]. NECK: Denies any neck pain CARDIOVASCULAR: [Denies chest pain and palpitations]. MUSCULOSKELETAL: [Denies arthralgias, back pain and thrombophlebitis]. SKIN: [Denies rash]. NEUROLOGIC: [Denies headache, stroke and transient ischemic attack]. PSYCHIATRIC: [Denies anxiety and depression]. ENDOCRINE: [Denies thyroid disease]. HEMATOLOGY/ONCOLOGY: [Denies bleeding or clotting disorder]. HEART: [Denies any chest pains, palpitations, paroxysmal dyspnea, orthopnea]. PULMONARY: [Denies chronic cough, dyspnea and wheezing]. GASTROINTESTINAL: See HPI. GENITOURINARY: [Denies dysuria, frequency, hematuria and nocturia]. ENDOCRINE: [Denies polydipsia, polyphagia, polyuria, heat or cold intolerance]. INFECTIOUS: [Denies any recent upper respiratory tract infection, UTI, need for use of antibiotics]. NUTRITION: [Reports good appetite]. PHYSICAL EXAMINATION: VITALS SIGNS: Please see below. GENERAL APPEARANCE: Patient sitting up on the bed when I entered the room, looks very comfortable. SKIN: [Warm and moist]. HEENT: [Normocephalic, atraumatic. [place] palpebral conjunctiva, anicteric sclerae. Lips and mucosa appear moist]. NECK: [Supple, no thyromegaly. No obvious jugular venous distention]. LUNGS: [Clear to auscultation bilaterally. No wheezing appreciated]. HEART: [No chest wall abnormalities. Regular rate and rhythm with no murmurs appreciated]. ABDOMEN: Abdomen is nondistended, loose pannus from the weight loss, soft, no gross tenderness on palpation over the epigastric and right upper quadrant area. EXTREMITIES: [Extremities have no deformities. No edema identified] ANCILLARIES: . LABORATORY DATA: Please see below. IMAGING STUDIES: CT abdomen and pelvis Findings consistent with pancreatitis with intrapancreatic and peripancreatic edema. Gallbladder wall thickening. These findings are new. There is hepatosplenomegaly, unchanged from the April 15, 2019. No other acute abnormality. MRCP .1. There are 100s of small gallstones within the gallbladder. There is fluid along the course of the pancreas consistent with pancreatitis. 2. Some fluid along the margins of the gallbladder could be the result of cholecystitis. 3. The common bile duct is not enlarged. The pancreatic duct is not enlarged IMPRESSION AND PLAN: History of morbid obesity status post Siddhartha-en-Y gastric bypass Gallstone pancreatitis I discussed with him how the gastric bypass fax management of his gallstones and the gallstone pancreatitis as well as possibility of having colon bile duct stones. This is of concern especially with his LFTs being elevated on admission. This seems to be improving on repeat. Likewise a lipase has gone down markedly. Clinically he does not have any further abdominal discomfort or tenderness and is so far tolerating full liquids. He does have stones in his gallbladder with some signs of gallbladder wall thickening consistent with some chronic type of cholecystitis. On imaging he has some pancreatic edema consistent with his pancreatitis though no signs of necrosis. As he has improved I recommend advancing his diet. I told him that he does not need to have his gallbladder removed and the only question is timing. I do feel that there is some benefit of waiting it out a bit to that the leftover pancreatic edema resolve. Patient also wishes to go home if at all possible. I worked with my office and have scheduled him for an outpatient surgery to be scheduled on Sunday. If he is tolerating diet he can go home while awaiting surgery. Vital Signs Vital Signs Date Time Temp Pulse Resp B/P (MAP) Pulse Ox O2 Delivery O2 Flow Rate FiO2 07/16/19 06:00 98.2 77 18 165/81 (109) 97 07/15/19 10:02 Room Air I&Os I&O- Last 24 Hours up to 6 AM 07/16/19 06:00 Intake Total 4305 ml Output Total 200 ml Balance 4105 ml Laboratory Data Labs 24H Laboratory Tests 2 07/16/19 06:09: Anion Gap 5L, Calcium Level 9.0, Aspartate Amino Transf (AST/SGOT) 133H, Alanine Aminotransferase (ALT/SGPT) 175H, Alkaline Phosphatase 70, Total Bilirubin 2.2H, Direct Bilirubin 0.3H, Total Protein 6.6, Albumin 3.6, Albumin/Globulin Ratio 1.20, Lipase 948H 07/16/19 06:10: Immature Granulocyte % (Auto) 0.4, White Blood Count 5.3, Red Blood Count 4.45, Hemoglobin 14.3#, Hematocrit 41.4L, Mean Corpuscular Volume 93.0, Mean Corpuscular Hemoglobin 32.1, Mean Corpuscular Hemoglobin Concent 34.5, Red Cell Distribution Width 12.6, Platelet Count 181, Neutrophils (%) (Auto) 58.1, Lymphocytes (%) (Auto) 31.2, Monocytes (%) (Auto) 7.4H, Eosinophils (%) (Auto) 2.3, Basophils (%) (Auto) 0.6, Neutrophils # (Auto) 3.1, Lymphocytes # (Auto) 1.7, Monocytes # (Auto) 0.4, Eosinophils # (Auto) 0.1, Basophils # (Auto) 0.0, Nucleated Red Blood Cells % (auto) 0.0 CBC/BMP Laboratory Tests 07/16/19 06:09 07/16/19 06:10 Red Blood Count 4.45, Mean Corpuscular Volume 93.0, Mean Corpuscular Hemoglobin 32.1, Mean Corpuscular Hemoglobin Concent 34.5, Red Cell Distribution Width 12.6, Neutrophils (%) (Auto) 58.1, Lymphocytes (%) (Auto) 31.2, Monocytes (%) (Auto) 7.4 H, Eosinophils (%) (Auto) 2.3, Basophils (%) (Auto) 0.6, Neutrophils # (Auto) 3.1, Lymphocytes # (Auto) 1.7, Monocytes # (Auto) 0.4, Eosinophils # (Auto) 0.1, Basophils # (Auto) 0.0 Home Medications No Active Prescriptions or Reported Meds Allergies Coded Allergies: No Known Allergies (Unverified , 02/03/19) ROSE MORALES MD Jul 16, 2019 14:34
== END 2019-07-16 14:54 | disposition home or self-care (01) | DRG 440 ==
LOC: M ED 10:02 → M ED INP 12:40 → M MSPAV 14:32
PROVIDERS: ADMIT Internal Medicine Nephrology; ATTEND Internal Medicine Nephrology
DX: K85.00 Idiopathic acute pancreatitis without necrosis or infection (principal); Z98.84 Bariatric surgery status; K80.20 Calculus of gallbladder without cholecystitis without obstruction

== ENCOUNTER 2019-07-21 11:49 | Day surgery (SDC) | payer OTHER ==
[~2019-07-21] VITALS: Ht 185.4 cm; Wt 119.3 kg
[~2019-07-21 11:49] MED LIST: KETOROLAC 60 MG/2 ML VIAL (J1885) As Ordered ONE; LIDOCAINE 2% INJ 100 MG/5 ML SDV (FOR ANES.) As Ordered ONE; MIDAZOLAM INJ 2 MG/2 ML VIAL (J2250) As Ordered ONE; ONDANSETRON 4MG/2ML VIAL (J2405) As Ordered ONE; ROCURONIUM BROMIDE 50 MG/5 ML VIAL As Ordered ONE; dexameTHASONE 4 MG/ML 1ML VIAL (J1100) As Ordered ONE; fentaNYL 250 MCG/5 ML INJECTION (J3010) As Ordered ONE; propofoL 200 MG/20 ML VIAL As Ordered ONE
[2019-07-21] MEDS ORDERED: AMPICILLIN SOD/SULBACTAM SOD 3 GM in D5W MINI-BAG PLUS 100 ML IV ONE (12:00)
[2019-07-21] MEDS ORDERED: LR 1,000 ML IV ONE (12:00)
[2019-07-21] MEDS ORDERED: OXYC1TAB23 PO (12:34)
[2019-07-21] MEDS ORDERED: LIDOCAINE 1% SDV INJ 30 ML VIAL As Ordered ONE (12:49)
[2019-07-21] MEDS ORDERED: BUPIVACAINE HCL 0.25% 30 ML VIAL As Ordered ONE (12:50)
[2019-07-21] MEDS ORDERED: CONRAY-60 60% 50ML VIAL (Q9961) As Ordered ONE (13:27)
[2019-07-21] MEDS ORDERED: SUGAMMADEX SODIUM 500 MG/5 ML VIAL (BRIDION) As Ordered ONE (14:27)
[2019-07-21] MEDS ORDERED: HYDROmorphone HCL 2 MG/ML 1ML VIAL (J1170) As Ordered ONE (15:05)
--- NOTE | 2019-07-21 16:58 | REP ---
INTRAOPERATIVE CHOLANGIOGRAM: Two intraoperative images are performed for intraoperative cholangiography. There is contrast opacifying intrahepatic ducts as well as the common hepatic and common bile duct. There is no duct dilatation. No stricture or filling defect is seen in the common bile duct. 23 seconds of fluoroscopy time was utilized. Electronically Signed by Guillermo Myers MD 07/23/2019 09:30 A
[2019-07-21] MEDS ORDERED: KETOROLAC 30 MG/ML VIAL (J1885) IV PRN (17:45)
[2019-07-21] MEDS ORDERED: PERCOCET 5MG/325MG TAB PO PRN ×2 (17:45)
[2019-07-21] MEDS ORDERED: LR 1,000 ML IV SCH (17:45)
[2019-07-21] MEDS ORDERED: oxyCODONE 5MG TAB PO PRN (17:45)
[2019-07-21] MEDS ORDERED: ONDANSETRON 4MG/2ML VIAL (J2405) IV PRN ×2 (17:45)
[2019-07-21] MEDS: fentaNYL 100 MCG/2 ML INJECTION (J3010) IV PRN ×2 (18:08→18:17)
[2019-07-21 20:05] VITALS: BP 146/68
--- NOTE | 2019-07-29 04:49 | ROOPDOC ---
[facility] Report Of Operation Report of Operation DATE OF PROCEDURE: 07/21/19 PREPROCEDURE DIAGNOSES: History of cholelithiasis and gallstone pancreatitis, gastric bypass status. POSTPROCEDURE DIAGNOSES: Cholelithiasis, chronic cholecystitis, gastric bypass status. PROCEDURE: Robotic-assisted laparoscopic cholecystectomy with intraoperative cholangiogram. SURGEON: Florin Comer MD ANESTHESIA: Gen. anesthesia. ESTIMATED BLOOD LOSS: Approximately 20 mL. COMPLICATIONS: None. REMARKS: Patient is 3 years removed from gastric bypass has a moderately loose pannus and subcutaneous tissue which made entry into the abdomen difficult PROCEDURE NOTE: Difficult entry into the abdomen due to loose pannus and subcutaneous tissue. Gallbladder itself is moderately distended but relatively thin-walled. Multiple stones in the body, neck and even at the cystic duct which was milked back into the gallbladder. Intraoperative cholangiogram performed showing intact and normal size biliary tree with visualization of dye in the duodenum with no stones seen in the common bile duct. Unfortunately he had spillage of stones in the abdomen within the clip holding the cystic duct loosened up which required a great amount of time to retrieve the stone. DESCRIPTION OF PROCEDURE: Patient was given a dose Unasyn 3 g IV preoperatively for prophylaxis. He was brought to the operating room, laid supine on the table, compression boots placed for DVT prophylaxis. General endotracheal anesthesia started. His abdomen then prepped and draped in usual sterile fashion. Surgical timeout was performed prior to starting surgery. I tried multiple times to enter the abdomen. Initially started with periumbilical incision I dissected down to the fascia. The skin is quite loose and the subcutaneous tissues likewise is loose and deep. I had difficulty confirming intra-abdominal placement of the Veress needle and insufflation was erratic. I then tried the left upper quadrant area again unfortunately with the same result I was able to get in through the right upper quadrant area subcostally. Once I was able to enter the abdomen, a long bariatric 5 mm port was placed again 9 entry into the abdomen under direct vision. All 3 insertion sites for the Veress needle was inspected for injury and none was found. There was evidence for preperitoneal insufflation around the umbilicus. Both times I wasn't able to enter the abdomen. Patient was then positioned Trendelenburg slightly tilted right side up to allow for better better visualization of the gallbladder. The robotic port sites were placed in its usual position, slight oblique orientation from the left upper quadrant area going towards the right abdomen roughly about 10-12 cm apart. I used the previous incision around the um bilicus from a camera port sites, 28 mm ports in the right side one midclavicular and one slightly right anterior axillary line level. The [employer] [place]restes robot tower was then positioned in place and the trochars docked onto the robotic arms. I used a probe grasped with grasper, reports bipolar grasper connected to bipolar cautery, 8 mm 30 laparoscope point and downwards, focal cautery connected to monopolar cautery and exchanged this for [place] bipolar instrument. The right upper quadrant 5 mm port was used for insertion of the cholangiogram catheter later on. Operative findings: His liver is noted to be smooth in contour no nodularities or lesions found, looks moderately enlarged. His gallbladder is tensely distended hard to grasp, mildly thin walled. I tried to aspirate the gallbladder to release the tension but only got a small amount of bile. His gallbladder was full is tones from the mid body down to the neck the gallbladder. Once the gallbladder was partially decompressed, the fundus of the gallbladde r was grasped and the gallbladder was elevated superiorly exposing the neck of the gallbladder. The peritoneum overlying the area was opened up and dissected free both anteriorly and posteriorly to help with retraction of the gallbladder. The hepatocystic triangle was approached and dissected using a [place] and instrument. The cystic duct was identified coming off from the next gallbladder this was circumferentially dissected. The cystic artery was identified in its usual position medially behind a small lymph node of [place]. This was similarly circumferentially dissected off surrounding adipose tissue. We continued posterior dissection proximally at the next gallbladder until a critical view of safety was achieved whereby only the previously identified duct and artery coursing through the neck the gallbladder. At this point, I placed a 10 mm Hem-o-sindy clip flush to the junction of the cystic duct and gallbladder neck after milking a couple of stones in the cystic duct towards the gallbladder. A partial cystotomy was created and a tiny stone was removed. The cholangiogram catheter was inserted through the cystotomy and directed towards gallbladder duct with the balloon inflated. Trial of saline flushing was done with no leakage. Cholangiogram was then performed after deflating the abdomen and undocking the robot and removing the robotic instruments. Patient was placed on a slight Trendelenburg position. Fluoroscopic examination of the biliary tree was done while injecting Conray daily at 30% and then 50%. The whole biliary tree was visualized with good drainage into the duodenum. No calculi was noted in the biliary tree. The extrah epatic biliary tree is not dilated. The da Orestes robot tower was then maneuvered back in place patient's again repositioned in its usual position, reverse Trendelenburg slightly tilted right wards. The trochars were docked and the robotic instruments placed once more. The cholangiocatheter was removed. And scrubbed to control of the robotic camera and arms. The cystic artery was divided after placing 2 Hem-o-sindy clips. The cystic duct was divided after placing 2 Hem-o-sindy clips at the distal end. Unfor tunately while retracting the gallbladder the previously placed Hem-o-sindy clip at the gallbladder and loosened up with spillage of multiple yellowish friable stones likewise bile. I regain control of the opening and completed the cholecystectomy with difficulty because of trying to maintain control of the end of the gallbladder. After this was done distally over the Endo Catch bag. Again unfortunately he had some difficulty retrieving the gallbladder. I retrieved it from the abdominal incision site which had to enlarge markedly at the gallbladder is enlarged and packed.. This was then closed with 0 Vicryl using a Eber Aguilar device and it resumed laparoscopy at this time. The robot was undocked. I spent about another 30 minutes or so retrieving stones and flushing the gallbladder bed until I was satisfied that the retrieved all her most stones that has spilled. After this the abdominis deflated. Rest of the incisions were closed with 4-0 Monocryl in subcutaneous fashion. Steri-Strips and gauze dressings in place in top of the incisions. Patient was then promptly awakened, extubated and brought to recovery room in stable condition. FLORIN COMER MD Jul 29, 2019 04:49
== END 2019-07-21 20:30 | disposition home or self-care (01) ==
LOC: M SDC 11:49
PROVIDERS: ATTEND Surgery
DX: K80.10 Calculus of gallbladder with chronic cholecystitis without obstruction (principal); F17.290 Nicotine dependence, other tobacco product, uncomplicated
CPT/HCPCS: 47563; 76000; 88304; J1100; J1170; J1885; J2250; J2405; J3010; Q9961

== ENCOUNTER → 2020-11-18 | Outpatient (CLI) | payer SELFPAY ==
[~2020-11-18] MED LIST changes: -KETOROLAC 60 MG/2 ML VIAL (J1885) As Ordered ONE; -LIDOCAINE 2% INJ 100 MG/5 ML SDV (FOR ANES.) As Ordered ONE; -MIDAZOLAM INJ 2 MG/2 ML VIAL (J2250) As Ordered ONE; -ONDANSETRON 4MG/2ML VIAL (J2405) As Ordered ONE; +OXYC1TAB23 PO; -ROCURONIUM BROMIDE 50 MG/5 ML VIAL As Ordered ONE; -dexameTHASONE 4 MG/ML 1ML VIAL (J1100) As Ordered ONE; -fentaNYL 250 MCG/5 ML INJECTION (J3010) As Ordered ONE; -propofoL 200 MG/20 ML VIAL As Ordered ONE
== END ==
LOC: M LABSMTC 11:48
PROVIDERS: ATTEND Pediatrics
DX: Z20.822 Contact with and (suspected) exposure to COVID-19 (principal)

== ENCOUNTER → 2020-12-21 | Outpatient (CLI) | payer SELFPAY | LOC: M LABSMTC 12:59 | PROVIDERS: ATTEND Pediatrics | DX: Z20.822 Contact with and (suspected) exposure to COVID-19 (principal) ==